=== PATIENT | male | born 1955 | race Caucasian/White ===

== ENCOUNTER 2024-08-30 05:40 | Day surgery (SDC) | payer MEDICARE, MEDICAID ==
[~2024-08-30] VITALS: Ht 172.7 cm; Wt 79.0 kg
[~2024-08-30 05:40] MED LIST: CYCLOPENTOLATE HCL 1% 2 ML OPHTHALMIC SOLUTION ONE; KETOROLAC TROMETHAMINE 0.5% 5 ML OPHTHALMIC SOLUTION ONE; MOXIFLOXACIN HCL 0.5% 3 ML OPHTHALMIC SOLUTION ONE; PHENYLEPHRINE HCL 2.5% 2 ML OPHTHALMIC SOLUTION ONE; RINGERS SOLUTION,LACTATED 500 ML IV ONE; TETRACAINE HCL/PF 0.5% 4 ML OPHTHALMIC SOLUTION ONE; TROPICAMIDE 1% 2 ML OPHTHALMIC SOLUTION ONE
[2024-08-30] MEDS: RINGERS SOLUTION,LACTATED 500 ML IV ONE (06:11)
[2024-08-30] MEDS: CYCLOPENTOLATE HCL 1% 2 ML OPHTHALMIC SOLUTION OS SCH (06:12)
[2024-08-30] MEDS: PHENYLEPHRINE HCL 2.5% 2 ML OPHTHALMIC SOLUTION OS SCH (06:12)
[2024-08-30] MEDS: MOXIFLOXACIN HCL 0.5% 3 ML OPHTHALMIC SOLUTION OS SCH (06:12)
[2024-08-30] MEDS: KETOROLAC TROMETHAMINE 0.5% 5 ML OPHTHALMIC SOLUTION OS SCH (06:12)
[2024-08-30] MEDS: PROPARACAINE HCL 0.5% 15 ML OPHTHALMIC SOLUTION OS ONE (06:13)
[2024-08-30] MEDS: TETRACAINE HCL/PF 0.5% 4 ML OPHTHALMIC SOLUTION OS ONE (06:13)
[2024-08-30] MEDS: TROPICAMIDE 1% 2 ML OPHTHALMIC SOLUTION OS SCH (06:13)
[2024-08-30] MEDS: TETRACAINE HCL/PF 0.5% 4 ML OPHTHALMIC SOLUTION OS SCH (06:20)
[2024-08-30] MEDS ORDERED: PrednisoLONE ACETATE 1% 5 ML OPHTHALMIC SUSPENSION ONE (06:34)
[2024-08-30] MEDS ORDERED: BALANCED SALT 15 ML OPHTHALMIC IRRIG.SOLN ONE (06:49)
[2024-08-30] MEDS ORDERED: MIDAZOLAM HCL 2 MG/2 ML VIAL ONE (06:49)
[2024-08-30] MEDS ORDERED: HYALURONATE SOD 8.5MG/0.85ML 10 MG/ML SYRINGE IO ONE (06:49)
[2024-08-30] MEDS ORDERED: FentaNYL CITRATE PF 100 MCG/2 ML VIAL ONE (06:49)
[2024-08-30] MEDS ORDERED: HYDR-3831 PO (07:20)
[2024-08-30] MEDS ORDERED: ATOR40TA28 PO (07:20)
[2024-08-30] MEDS ORDERED: ALLO-97 PO (07:20)
[2024-08-30] MEDS ORDERED: TAMS0.4C94 PO (07:20)
[2024-08-30] MEDS ORDERED: DOCU-385 PO (07:20)
[2024-08-30] MEDS ORDERED: SEVE800T38 PO (07:20)
[2024-08-30] MEDS: POVIDONE-IODINE 5% 30 ML OPHTHALMIC SOLUTION ONE (07:42)
[2024-08-30] MEDS: LIDOCAINE/PF 1% 2 ML VIAL ONE (07:42)
[2024-08-30] MEDS: EPINEPHrine 1:1,000 [1 MG/ML] VIAL ONE (07:42)
[2024-08-30] MEDS: BALANCED SALT 15 ML OPHTHALMIC IRRIG.SOLN ONE (07:42)
[2024-08-30] MEDS: PROPARACAINE HCL 0.5% 15 ML OPHTHALMIC SOLUTION ONE (07:42)
[2024-08-30] MEDS: NEOMYCIN/POLYMYXIN B/DEXAMETH 3.5 GM OPHTHALMIC OINTMENT ONE (07:54)
== END 2024-08-30 08:45 | disposition home or self-care (01) ==
LOC: SURGERY 05:40
PROVIDERS: ATTEND Ophthalmology
DX: H25.12 Age-related nuclear cataract, left eye (principal); I45.10 Unspecified right bundle-branch block; R94.31 Abnormal electrocardiogram [ECG] [EKG]; N28.9 Disorder of kidney and ureter, unspecified; Z98.818 Other dental procedure status
CPT/HCPCS: 66984; 93005; J0171; J3010; J3490; J2250; J7120; V2632